=== PATIENT | female | born 1935 | race Caucasian/White ===

== ENCOUNTER 2019-03-21 10:33 | Emergency (ER) | payer OTHER ==
[~2019-03-21] VITALS: Ht 149.9 cm; Wt 78.0 kg
[~2019-03-21 10:33] MED LIST: AMLODIPINE BESYL5 M2 PO; COUGH CONT100 MG/5 M PO; LAC PO; LEVAQUIN750 MG PO; TAM75 PO
[2019-03-21 10:39] VITALS: Ht 149.9 cm; Wt 78.0 kg
[2019-03-21 12:06] VITALS: BP 124/62
== END 2019-03-21 12:06 | disposition home or self-care (01) ==
LOC: ED 10:33
DX: S81.812A Laceration without foreign body, left lower leg, initial encounter (principal); X58.XXXA Exposure to other specified factors, initial encounter; Y93.89 Activity, other specified; Y92.89 Other specified places as the place of occurrence of the external cause; Y99.8 Other external cause status; I10 Essential (primary) hypertension
CPT/HCPCS: J0696

== ENCOUNTER 2019-03-23 10:13 | Emergency (ER) | payer OTHER ==
[~2019-03-23] VITALS: Ht 152.4 cm; Wt 78.0 kg
[2019-03-23 10:17] VITALS: BP 117/84; Ht 152.4 cm; Wt 78.0 kg
== END 2019-03-23 11:06 | disposition home or self-care (01) ==
LOC: ED 10:13
DX: L03.116 Cellulitis of left lower limb (principal); R05 Cough; I10 Essential (primary) hypertension; M19.90 Unspecified osteoarthritis, unspecified site